=== PATIENT | female | born 1960 | race Caucasian/White ===

== ENCOUNTER 2019-05-04 09:02 | Outpatient (CLI) | payer MEDICARE, MEDICAID ==
--- NOTE | 2019-05-04 09:46 | CT ---
CT HEAD WITHOUT CONTRAST: 05/04/2019: COMPARISON: CT head done at the [facility] from 04/05/2019. 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 There i s adjacent dural thickening and dural calcification, stable when compared to prior imaging. TECHNIQUE: Axial CT imaging at 5 mm intervals from vertex through skull base without contrast. FINDINGS: The 04/05/2019 examination demonstrated a large hemorrhagic contusion in the left frontal region with multifocal acute subdural hemorrhage bilaterally, left greater than right. The prior study demonstrated significant left to right midline shift. On this examination the intra-axial hemorrhage within the left frontal lobe has resolved. There is residual hypodensity within the left frontal lobe consistent with edema on the basis of resolving contusion, measuring 3.7 x 3.9 cm, decreased sin ce the prior exam. The bilateral subdural hematoma present on the prior examination has resolved. There is hypodensity involving the posterior medial aspect of the parieto-occipital lobe on the right , stable, consistent with an area of prior infarction. IMPRESSION: Residual edema within the left frontal lobe inferiorly consistent with resolving contusion. The intra cranial hemorrhage noted on the prior examination as well as the left to right midline shift has resolved. Transcribed Date/Time: 05/04/2019 9:53 AM
== END 2019-05-04 09:03 | disposition home or self-care (01) ==
LOC: TBSIIMAG 09:02
PROVIDERS: ATTEND Neurological Surgery
DX: I62.9 Nontraumatic intracranial hemorrhage, unspecified (principal)
CPT/HCPCS: 70450

== ENCOUNTER 2025-04-30 10:15 | Emergency (ER) | payer OTHER ==
[2025-04-30 10:34] LABS: #Basophils 0.03 10x3/uL (0.0-0.2); #Eosinophils Less than 0.03 10x3/uL (0.0-0.7); #Monocytes 0.35 10x3/uL (0.11-0.59); #Neutrophils 2.64 10x3/uL (1.40-6.50); %Basophils 0.7 % (0.0-1.0); %Eosinophils 0.2 % (0.0-10.0); %Lymphocytes 30.3 % (21.0-51.0); %Monocytes 8.0 % (0.0-10.0); %Neutrophils 60.6 % (42.0-75.0); Hematocrit 38.7 % (36.0-47.0); Hemoglobin 12.4 g/dL (12.0-16.0); Mean Corpuscular Hemoglobin 28.6 pg (27.0-31.0); Mean Corpuscular Volume 89.2 fL (78.0-98.0); Platelet Count 234 10x3/uL (130-400); Red Blood Cell (RBC) Count 4.34 mill/uL (4.20-5.40); White Blood Cell (WBC) Count 4.36 10x3/uL (4.8-10.8)
[2025-04-30 10:48] LABS: ALT (SGPT) 11 U/L (Less than 34); AST (SGOT) 15 U/L (11-34); Albumin 3.8 g/dL (3.1-4.5); Alkaline Phosphatase 87 U/L (40-110); Anion Gap 12 mmol/L (10-20); BUN (Urea Nitrogen) 5 mg/dL (9.8-20.1); Bilirubin, Total 0.2 mg/dL (0.3-1.2); Calc. Creatinine Clearance 0 mL/min (70-130); Calcium 8.8 mg/dL (7.8-10.44); Carbon Dioxide 24 mmol/L (23-31); Chloride 107 mmol/L (98-107); Globulin 3.1 g/dL (2.4-3.5); Glucose 100 mg/dL (80-115); Potassium 3.9 mmol/L (3.5-5.1); Sodium 139 mmol/L (136-145)
== END 2025-04-30 15:21 ==
LOC: ERS 10:15
DX: M62.838 Other muscle spasm (principal); I10 Essential (primary) hypertension; Z55.6 Problems related to health literacy; Z86.73 Personal history of transient ischemic attack (TIA), and cerebral infarction without residual deficits; Z79.899 Other long term (current) drug therapy
CPT/HCPCS: 70450; 80053; 82550; 85025; 93005